=== PATIENT | female | born 1960 | race Caucasian/White ===

== ENCOUNTER 2018-02-01 15:34 | Day surgery (SDC) | payer OTHER ==
[~2018-02-01] VITALS: Ht 154.9 cm; Wt 57.4 kg
[2018-02-01 15:59] VITALS: BP 124/73
[2018-02-01] MEDS: LACTATED RINGERS 1,000 ML IV SCH (16:23)
[2018-02-01] MEDS ORDERED: FENTANYL PF 250 MCG/5ML ONE (17:29)
[2018-02-01] MEDS ORDERED: MIDAZOLAM 1 MG/ML, 2ML ONE (17:29)
[2018-02-01] MEDS ORDERED: PROPOFOL 10 MG/ML, 20ML ONE (17:30)
[2018-02-01] MEDS ORDERED: CEFAZOLIN 1,000 MG ONE ×2 (17:31)
[2018-02-01] MEDS ORDERED: DEXAMETHASONE 4 MG/ML, 1ML ONE ×2 (17:31)
[2018-02-01] MEDS ORDERED: ONDANSETRON 2MG/ML, 2ML ONE (17:31)
[2018-02-01] MEDS ORDERED: PROMETHAZINE 25 MG SUPP PR PRN (18:00)
[2018-02-01] MEDS ORDERED: PROMETHAZINE 25 MG/ML, 1ML IM PRN ×2 (18:00)
[2018-02-01] MEDS ORDERED: hydrALAzine 20 MG/ML, 1ML IV PRN (18:00)
[2018-02-01] MEDS ORDERED: MORPHINE SULFATE 4 MG/ML, 1ML IVPush PRN (18:00)
[2018-02-01] MEDS ORDERED: ACETAMINOPHEN 325 MG TABLET PO PRN (18:00)
[2018-02-01] MEDS ORDERED: LABETALOL 5MG/ML, 20ML IV PRN (18:00)
[2018-02-01] MEDS ORDERED: HYDROmorphone 2 MG/ML, 1ML IVPush PRN (18:00)
[2018-02-01] MEDS ORDERED: MEPERIDINE/PF 25MG/0.5ML IVPush PRN (18:00)
[2018-02-01] MEDS ORDERED: ONDANSETRON ODT 8 MG PO PRN (18:00)
[2018-02-01] MEDS ORDERED: PROMETHAZINE 12.5 MG SUPP PR PRN (18:00)
[2018-02-01] MEDS ORDERED: PROMETHAZINE 25 MG/ML, 1ML IV PRN (18:00)
[2018-02-01] MEDS ORDERED: HALOPERIDOL 5 MG/ML IV PRN (18:00)
[2018-02-01] MEDS ORDERED: ONDANSETRON 2MG/ML, 2ML IV PRN ×2 (18:00→22:30)
[2018-02-01] MEDS ORDERED: FENTANYL PF 100 MCG/2ML IV PRN (18:00)
[2018-02-01] MEDS ORDERED: OXYcodone 5 MG/5 ML ORAL.SOL UDC PO PRN (18:00)
[2018-02-01] MEDS ORDERED: MEPERIDINE/PF 50 MG/ML ONE (19:21)
[2018-02-01] MEDS ORDERED: OXYcodone/APAP 5/325MG TABLET PO PRN (22:30)
== END 2018-02-01 22:00 | disposition home or self-care (01) ==
LOC: OR 15:34 → 4NOR 19:50 → OR 22:00
PROVIDERS: ATTEND Orthopaedic Surgery
DX: S52.572A Other intraarticular fracture of lower end of left radius, initial encounter for closed fracture (principal); S52.612A Displaced fracture of left ulna styloid process, initial encounter for closed fracture; X58.XXXA Exposure to other specified factors, initial encounter; Y93.89 Activity, other specified; Y92.89 Other specified places as the place of occurrence of the external cause; Y99.8 Other external cause status
CPT/HCPCS: 25609; 25652; 64415; 73100; 76000; C1713; J0690; J1100; J2175; J2250; J2405; J2704; J3010; J7120; G0378